=== PATIENT | female | born 1945 | race Caucasian/White ===

== ENCOUNTER 2017-08-30 09:15 | Emergency (ER) | payer MEDICARE, OTHER ==
[~2017-08-30] VITALS: Ht 157.5 cm; Wt 122.5 kg
[~2017-08-30 09:15] MED LIST: CALCIUM500 M1 PO; CYCLOBENZAPRINE10 MG PO; CYMBALTA30 MG PO; DETROL1 MG PO; ESOMEPRAZOLE MA40 MG PO; LEVOTHYROXINE50 MCG PO; LEVOXYL50 MCG PO; LISINOPRIL30 MG; LOSARTAN-HCTZ1 EAC2 PO; LOSARTAN-HCTZ1 EACH PO; MAGNESIUM100 MG PO; NEURONTIN300 MG PO; NEXIUM20 MG PO; NEXIUM40 MG PO; NITROGLYCERIN0.4 MG SL; NITROSTAT0.4 MG SL; NORCO 5-325 TA1 EACH PO; SIMVASTATIN20 MG PO; SIMVASTATIN5 MG; SLOW RELEASE I142 MG PO; ZOCOR20 MG PO; ZOFRAN ODT4 MG SL
[2017-08-30] MEDS ORDERED: CELECOXIB200 MG PO (11:23)
--- OUTSIDE RECORDS SUMMARY | 2017-08-30 11:37 | XMS ---
Demographics + + + | Address | [address] | | | [place] [address] | + + + | Preferred Language | Unknown | + + + | Marital Status | Unknown | + + + | Buddhism Affiliation | Unknown | + + + | Race | Unknown | + + + | Ethnic Group | Unknown | + + + Author + + + | Author | [facility] | + + + | Organization | [facility] | + + + | Address | [address] | | | [place] [address] | + + + | Phone | | + + + Care Team Providers + + + + | Care Wire Coater Name | Role | Phone | + + + + Unavailable | Unavailable | + + + + PROBLEMS + + + + + + + + | Type | Condition | ICD9-CM | [id number] | Onset | Condition | SNOMED | | | | Code | Code | Dates | Status | Code | + + + + + + + + | Assessment | Tinnitus | H93.13 | | 11 Dec, | Active | [id number] | | | of both | | | 2017 | | 102 | | | ears | | | | | | + + + + + + + + | Assessment | Low serum | E27.40 | | 11 Dec, | Active | | | | cortisol | | | 2017 | | | | | level | | | | | | + + + + + + + + | Problem | Osteopenia | 733.90 | | | Active | 74205969 | + + + + + + + + | Problem | Leg pain, | 729.5 | | | Active | 01158867 | | | bilateral | | | | | | + + + + + + + + | Problem | Depression | 300.4 | | | Active | 612357502 | | | with | | | | | | | | anxiety | | | | | | + + + + + + + + | Problem | Morbid | | E66.01 | | Active | 737687302 | | | obesity | | | | | | + + + + + + + + | 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 | | | Active | 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 | | | | | | | | carcinoma | | | | | | | | of breast | | | | | | + + + + + + + + | 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 | | | Active | 658641649 | | | stress and | | | | | | | | urge | | | | | | | | urinary | | | | | | | | incontinen | | | | | | | | ce | | | | | | + + + + + + + + | Problem | Skin | 686.9 | | | Active | 723866562 | | | lesion, | | | | | | | | infected | | | | | | + + + + + + + + | Problem | Spondylosi | M47.16 | | | Active | 02189394 | | | s, lumbar, | | | | | | | | with | | | | | | | | myelopathy | | | | | | + + + + + + + + | Problem | Situationa | F43.21 | | | Active | 64926734 | | | l | | | | | | | | depression | | | | | | + + + + + + + + | Problem | Lumbosacra | M47.27 | | | Active | 93460761 | | | l | | | | | | | | radiculopa | | | | | | | | thy due to | | | | | | | | | | | | | | | | degenerati | | | | | | | | ve joint | | | | | | | | disease of | | | | | | | | spine | | | | | | + + + + + + + + | Problem | Adrenal | E27.40 | | | Active | 238752942 | | | insufficie | | | | | | | | ncy | | | | | | + + + + + + + + | Problem | Recurrent | J69.0 | | | Active | 510398629 | | | aspiration | | | | | | | | | | | | | | | | bronchitis | | | | | | | | /pneumonia | | | | | | + + + + + + + + | Problem | Vitamin D | 268.9 | | | Active | 87141248 | | | deficiency | | | | | | + + + + + + + + | Problem | Chemothera | V67.2 | | | Active | 064884887 | | | py | | | | | | | | follow-up | | | | | | | | examinatio | | | | | | | | n | | | | | | + + + + + + + + | Problem | Chemothera | 787.91 | | | Active | 30336008 | | | py induced | | | | | | | | diarrhea | | | | | | + + + + + + + + | 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 | | | Active | 22537925 | | | erative | | | | | | | | anemia | | | | | | + + + + + + + + | Problem | Occult | R19.5 | | | Active | 26363516 | | | blood | | | | | | | | positive | | | | | | | | stool | | | | | | + + + + + + + + | Problem | ASCVD | I25.10 | | | Active | 66983954 | | | (arteriosc | | | | | | | | lerotic | | | | | | | | cardiovasc | | | | | | | | ular | | | | | | | | disease) | | | | | | + + + + + + + + | Problem | Preop | Z01.818 | | | Active | 059288949 | | | general | | | | | | | | physical | | | | | | | | exam | | | | | | + + + + + + + + | Problem | GERD | | K21.9 | | Active | 884231725 | | | (gastroeso | | | | | | | | phageal | | | | | | | | reflux | | | | | | | | disease) | | | | | | + + + + + + + + | Problem | Iron | | D50.9 | | Active | 59244490 | | | deficiency | | | | | | | | anemia | | | | | | + + + + + + + + | Problem | Family | V16.0 | | | Active | 195365955 | | | history of | | | | | | | | colon | | | | | | | | cancer | | | | | | + + + + + + + + | Problem | Hypothyroi | | E03.9 | | Active | 67532561 | | | d | | | | | | + + + + + + + + | Problem | Hyperlipid | | E78.5 | | Active | 53589077 | | | emia | | | | | | + + + + + + + + | Problem | Stress | N39.3 | | | Active | 21886488 | | | incontinen | | | | | | | | ce | | | | | | + + + + + + + + | Problem | Calculus | | N20.0 | | Active | 81966791 | | | of kidney | | | | | | + + + + + + + + | Problem | Hypertensi | | I10 | | Active | 34344309 | | | on | | | | | | + + + + + + + + ALLERGIES + + + + +--------+ | Substance | Reaction | Event Type | Date | Status | + + + + +--------+ | Penicillin | anaphylaxis | Drug Allergy | Dec, | Active | + + + + +--------+ | Codeine | hallucinations | Drug Allergy | Dec, | Active | + + + + +--------+ | Flagyl | hives | Drug Allergy | Dec, | Active | + + + + +--------+ | Cipro | SOB | Drug Allergy | Dec, | Active | + + + + +--------+ | sulfa | hives | Non Drug | Dec, | Active | | | | Allergy | | | + + + + +--------+ SOCIAL HISTORY No smoking Hx information available PLAN OF CARE VITAL SIGNS + + + + | Height | 60 in | 2016-12-21 | + + + + | Weight | 271.0 lbs | 2016-12-21 | + + + + | BMI | 52.92 kg/m2 | 2016-12-21 | + + + + | Temperature | 97.0 degrees Fahrenheit | 2016-12-21 | + + + + | Heart Rate | 90 /min | 2016-12-21 | + + + + | Blood pressure systolic | 130 mm Hg | 2016-12-21 | + + + + | Blood pressure diastolic | 99 mm Hg | 2016-12-21 | + + + + MEDICATIONS + + + + + + + +--------+ | Medicati | Instruct | Dosage | Frequenc | Start | End Date | Duration | Status | | on | ions | | y | Date | | | | + + + + + + + +--------+ | Macrobid | Orally | 1 | 12h | 10 Apr, | 15 Apr, | 5 days | Active | | 100 mg | every 12 | capsule | | 2016 | 2016 | | | | | hrs | with | | | | | | | | | food | | | | | | + + + + + + + +--------+ | Losartan | Orally | TAKE ONE | | | | 30 | Active | | | one time | TABLET | | | | | | | Potassiu | daily | BY MOUTH | | | | | | | m-HCTZ | in am | EVERY | | | | | | | 50-12.5 | | DAY | | | | | | | MG | | | | | | | | + + + + + + + +--------+ | Magnesiu | Orally | 1 tablet | 8h | | | | Active | | m 500 MG | Three | with | | | | | | | | times a | food | | | | | | | | day | | | | | | | + + + + + + + +--------+ | Simvasta | Orally | 1 tablet | 24h | | | 90 days | Active | | tin 20 | Once a | every | | | | | | | MG | day | evening | | | | | | + + + + + + + +--------+ | Cymbalta | Orally | 1 | 12h | | | 90 | Active | | 30 mg | Twice a | capsule | | | | | | | | day | | | | | | | + + + + + + + +--------+ | Gabapent | Orally | 1 cap AM | 8h | 22 Sep, | | | Active | | in 300 | tid | and PM. | | 2015 | | | | | MG | | 2 caps | | | | | | | | | at | | | | | | | | | night | | | | | | + + + + + + + +--------+ | Slow Fe | Orally | 1 tablet | 8h | | | | Active | | 142 (45 | Three | | | | | | | | Fe) MG | times a | | | | | | | | | day | | | | | | | + + + + + + + +--------+ | Nitrogly | Sublingu | 1 tablet | | 16 Mar, | | | Active | | cerin | al 1 tab | under | | 2013 | | | | | 0.4 MG | at | the | | | | | | | | onset of | tongue | | | | | | | | chest | | | | | | | | | pain. | | | | | | | | | May | | | | | | | | | repeat | | | | | | | | | every | | | | | | | | | 5min x2 | | | | | | | | | as | | | | | | | | | needed | | | | | | | | | for | | | | | | | | | continue | | | | | | | | | d chest | | | | | | | | | pain | | | | | | | + + + + + + + +--------+ | Levothyr | Orally | 1 tablet | 24h | | | | Active | | oxine | Once a | every | | | | | | | Sodium | day | morning | | | | | | | 50 MCG | | on an | | | | | | | | | empty | | | | | | | | | stomach | | | | | | + + + + + + + +--------+ | Tolterod | Orally | 2 tabs | 12h | 15 Seng, | 27 Dixon, | 30 | Active | | ine | Twice a | in am | | 2016 | 2017 | day(s) | | | Tartrate | day | and 1 | | | | | | | 1 MG | | tab at | | | | | | | | | night | | | | | | + + + + + + + +--------+ | Vitamin | Orally | 1 tablet | 8h | | | | Active | | C 500 MG | Three | | | | | | | | | times a | | | | | | | | | day | | | | | | | + + + + + + + +--------+ | Calcium | | | | | | | Active | + + + + + + + +--------+ | Meloxica | Orally | 1 tablet | 24h | | | | Active | | m 15 MG | Once a | | | | | | | | | day | | | | | | | + + + + + + + +--------+ | Esomepra | | TAKE 1 | | | | 30 | Active | | zole | | CAPSULE | | | | | | | Magnesiu | | BY MOUTH | | | | | | | m 40 | | EVERY | | | | | | | | | DAY | | | | | | + + + + + + + +--------+ RESULTS No Results PROCEDURES + + + + + | Procedure | Date Ordered | Related Diagnosis | Body Site | + + + + + | Est Level III | December 21, 2016 | | | | Intermediate | | | | + + + + + | DOC MEDS VERIFIED | December 21, 2016 | | | | W/PT OR RE | | | | + + + + + IMMUNIZATIONS No Known Immunizations"
--- OUTSIDE RECORDS SUMMARY | 2017-08-30 11:37 | XMS ---
Demographics + + + | Address | [address] | | | [place] [address] | + + + | Preferred Language | Unknown | + + + | Marital Status | Unknown | + + + | Christian Affiliation | Unknown | + + + | Race | Unknown | + + + | Ethnic Group | Unknown | + + + Author + + + | Author | [facility] | + + + | Organization | [facility] | + + + | Address | 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 | | | Active | 328683792 | | | ductal | | | | | | | | carcinoma | | | | | | | | of breast | | | | | | +---------+ + + +--------+ + + | Problem | Spondylosi | M47.16 | | | Active | 47971195 | | | s, lumbar, | | | | | | | | with | | | | | | | | myelopathy | | | | | | +---------+ + + +--------+ + + | Problem | Skin | 686.9 | | | Active | 408926583 | | | lesion, | | | | | | | | infected | | | | | | +---------+ + + +--------+ + + | Problem | Lumbosacra | M47.27 | | | Active | 10575730 | | | l | | | [...] spine | | | | | | +---------+ + + +--------+ + + | Problem | Chemothera | 787.91 | | | Active | 18104730 | | | py induced | | | | | | | | diarrhea | | | | | | +---------+ + + +--------+ + + | Problem | Situationa | F43.21 | | | Active | 19773368 | | | l | | | | | | | | depression | | | | | | +---------+ + + +--------+ + + | 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 | | | Active | 86704688 | | | erative | | | | | | | | anemia | | | | | | +---------+ + + +--------+ + + | Problem | Occult | R19.5 | | | Active | 67606593 | | | blood | | | | | | | | positive | | | | | | | | stool | | | | | | +---------+ + + +--------+ + + | Problem | Vitamin D | | E55.9 | | Active | 32513054 | | | deficiency | | | | | | +---------+ + + +--------+ + + | Problem | Osteopenia | | M85.80 | | Active | 81873168 | +---------+ + + +--------+ + + | Problem | Hypothyroi | | E03.9 | | Active | 22585114 | | | d | | | | | | +---------+ + + +--------+ + + | Problem | Family | V16.0 | | | Active | 460292036 | | | history of | | | | | | | | colon | | | | | | | | cancer | | | | | | +---------+ + + +--------+ + + | Problem | Chemothera | V67.2 | | | Active | 560869558 | | | py | | | | | | | | follow-up | | | | | | | | examinatio | | | | | | | | n | | | | | | +---------+ + + +--------+ + + | Problem | ASCVD | I25.10 | | | Active | 54872250 | | | (arteriosc | | | | | | | | lerotic | | | | | | | | cardiovasc | | | | | | | | ular | | | | | | | | disease) | | | | | | +---------+ + + +--------+ + + | Problem | Preop | Z01.818 | | | Active | 863358763 | | | general | | | | | | | | physical | | | | | | | | exam | | | | | | +---------+ + + +--------+ + + | Problem | Adrenal | E27.40 | | | Active | 437874425 | | | insufficie | | | | | | | | ncy | | | | | | +---------+ + + +--------+ + + | Problem | Recurrent | J69.0 | | | Active | 714305157 | | | aspiration | | | | | | | | | | | | | | | | bronchitis | | | | | | | | /pneumonia | | | | | | +---------+ + + +--------+ + + | Problem | Calculus | | N20.0 | | Active | 86881625 | | | of kidney | | | | | | +---------+ + + +--------+ + + | Problem | Hypertensi | | I10 | | Active | 50707818 | | | on | | | | | | +---------+ + + +--------+ + + | Problem | GERD | | K21.9 | | Active | 956618059 | | | (gastroeso | | | | | | | | phageal | | | | | | | | reflux | | | | | | | | disease) | | | | | | +---------+ + + +--------+ + + | Problem | Iron | | D50.9 | | Active | 85965194 | | | deficiency | | | | | | | | anemia | | | | | | +---------+ + + +--------+ + + | Problem | Morbid | | E66.01 | | Active | 984406054 | | | obesity | | | | | | +---------+ + + +--------+ + + | 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 | | | Active | 005003912 | | | stress and | | | | | | | | urge | | | | | | | | urinary | | | | | | | | incontinen | | | | | | | | ce | | | | | | +---------+ + + +--------+ + + | Problem | Hyperlipid | | E78.5 | | Active | 28653186 | | | emia | | | | | | +---------+ + + +--------+ + + | Problem | Stress | N39.3 | | | Active | 98653491 | | | incontinen | | | | | | | | ce | | | | | | +---------+ + + +--------+ + + ALLERGIES Unknown Allergies SOCIAL HISTORY No smoking Hx information available PLAN OF CARE VITAL SIGNS MEDICATIONS Unknown Medications RESULTS No Results PROCEDURES No Known procedures IMMUNIZATIONS No Known Immunizations"
--- OUTSIDE RECORDS SUMMARY | 2017-08-30 11:37 | XMS ---
Demographics + + + | Address | [address] | | | [place] [address] | + + + | Preferred Language | Unknown | + + + | Marital Status | Unknown | + + + | Jehovah'S Witness Affiliation | Unknown | + + + | Race | Unknown | + + + | Ethnic Group | Unknown | + + + Author + + + | Author | [facility] | + + + | Organization | [facility] | + + + | Address | [address] | | | [place] [address] | + + + | Phone | | + + + Care Team Providers + + + + | Care Special Education Coordinator Name | Role | Phone | + + + + Unavailable | Unavailable | + + + + PROBLEMS +---------+ + + +--------+ + + | Type | Condition | ICD9-CM | MTI75-CR | Onset | Condition | SNOMED | | | | Code | Code | Dates | Status | Code | +---------+ + + +--------+ + + | Problem | Osteopenia | 733.90 | | | Active | 79652015 | +---------+ + + +--------+ + + | Problem | Leg pain, | 729.5 | | | Active | 95378897 | | | bilateral | | | | | | +---------+ + + +--------+ + + | Problem | Depression | 300.4 | | | Active | 764145540 | | | with | | | | | | | | anxiety | | | | | | +---------+ + + +--------+ + + | Problem | Morbid | | E66.01 | | Active | 610128544 | | | obesity | | | | | | +---------+ + + +--------+ + + | 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 | | | Active | 252444270 | | | ductal | | | | | | | | carcinoma | | | | | | | | of breast | | | | | | +---------+ + + +--------+ + + | 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 | | | Active | 775225091 | | | stress and | | [...] | 686.9 | | | Active | 706118006 | | | lesion, | | | | | | | | infected | | | | | | +---------+ + + +--------+ + + | Problem | Spondylosi | M47.16 | | | Active | 36337519 | | | s, lumbar, | | | | | | | | with | | | | | | | | myelopathy | | | | | | +---------+ + + +--------+ + + | Problem | Situationa | F43.21 | | | Active | 05110842 | | | l | | | | | | | | depression | | | | | | +---------+ + + +--------+ + + | Problem | Lumbosacra | M47.27 | | | Active | 93189525 | | | l | | | [...] | E27.40 | | | Active | 784182873 | | | insufficie | | | | | | | | ncy | | | | | | +---------+ + + +--------+ + + | Problem | Recurrent | J69.0 | | | Active | 775451863 | | | aspiration | | | | | | | | | | | | | | | | bronchitis | | | | | | | | /pneumonia | | | | | | +---------+ + + +--------+ + + | Problem | Vitamin D | 268.9 | | | Active | 73013841 | | | deficiency | | | | | | +---------+ + + +--------+ + + | Problem | Chemothera | V67.2 | | | Active | 854158974 | | | py | | | | | | | | follow-up | | | | | | | | examinatio | | | | | | | | n | | | | | | +---------+ + + +--------+ + + | Problem | Chemothera | 787.91 | | | Active | 75193016 | | | py induced | | | | | | | | diarrhea | | | | | | +---------+ + + +--------+ + + | 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 | | | Active | 73683297 | | | erative | | | | | | | | anemia | | | | | | +---------+ + + +--------+ + + | Problem | Occult | R19.5 | | | Active | 56387335 | | | blood | | | | | | | | positive | | | | | | | | stool | | | | | | +---------+ + + +--------+ + + | Problem | ASCVD | I25.10 | | | Active | 75210210 | | | (arteriosc | | | | | | | | lerotic | | | | | | | | cardiovasc | | | | | | | | ular | | | | | | | | disease) | | | | | | +---------+ + + +--------+ + + | Problem | Preop | Z01.818 | | | Active | 715183005 | | | general | | | | | | | | physical | | | | | | | | exam | | | | | | +---------+ + + +--------+ + + | Problem | GERD | | K21.9 | | Active | 955620676 | | | (gastroeso | | | | | | | | phageal | | | | | | | | reflux | | | | | | | | disease) | | | | | | +---------+ + + +--------+ + + | Problem | Iron | | D50.9 | | Active | 59164253 | | | deficiency | | | | | | | | anemia | | | | | | +---------+ + + +--------+ + + | Problem | Family | V16.0 | | | Active | 320799913 | | | history of | | | | | | | | colon | | | | | | | | cancer | | | | | | +---------+ + + +--------+ + + | Problem | Hypothyroi | | E03.9 | | Active | 94262012 | | | d | | | | | | +---------+ + + +--------+ + + | Problem | Hyperlipid | | E78.5 | | Active | 66816066 | | | emia | | | | | | +---------+ + + +--------+ + + | Problem | Stress | N39.3 | | | Active | 03858515 | | | incontinen | | | | | | | | ce | | | | | | +---------+ + + +--------+ + + | Problem | Calculus | | N20.0 | | Active | 88151024 | | | of kidney | | | | | | +---------+ + + +--------+ + + | Problem | Hypertensi | | I10 | | Active | 88755132 | | | on | | | | | | +---------+ + + +--------+ + + ALLERGIES Unknown Allergies SOCIAL HISTORY No smoking Hx information available PLAN OF CARE VITAL SIGNS MEDICATIONS Unknown Medications RESULTS No Results PROCEDURES No Known procedures IMMUNIZATIONS No Known Immunizations"
--- OUTSIDE RECORDS SUMMARY | 2017-08-30 11:37 | XMS ---
Demographics + + + | Address | [address] | | | [place] [address] | + + + | Preferred Language | Unknown | + + + | Marital Status | Unknown | + + + | Mandaen Affiliation | Unknown | + + + | Race | Unknown | + + + | Ethnic Group | Unknown | + + + Author + + + | Author | [facility] | + + + | Organization | [facility] | + + + | Address | [address] | | | [place] [address] | + + + | Phone | | + + + Care Team Providers + + + + | Care Rack Worker Name | Role | Phone | + + + + Unavailable | Unavailable | + + + + PROBLEMS +---------+ + + +--------+ + + | Type | Condition | ICD9-CM | [id number] | Onset | Condition | SNOMED | | | | Code | Code | Dates | Status | Code | +---------+ + + +--------+ + + | Problem | Osteopenia | 733.90 | | | Active | 91640421 | +---------+ + + +--------+ + + | Problem | Leg pain, | 729.5 | | | Active | 29756686 | | | bilateral | | | | | | +---------+ + + +--------+ + + | Problem | Depression | 300.4 | | | Active | 970877098 | | | with | | | | | | | | anxiety | | | | | | +---------+ + + +--------+ + + | Problem | Morbid | | E66.01 | | Active | 958451904 | | | obesity | | | | | | +---------+ + + +--------+ + + | 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 | | | Active | 695145753 | | | ductal | | | | | | | | carcinoma | | | | | | | | of breast | | | | | | +---------+ + + +--------+ + + | 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 | | | Active | 125522829 | | | stress and | | [...] | 686.9 | | | Active | 070447264 | | | lesion, | | | | | | | | infected | | | | | | +---------+ + + +--------+ + + | Problem | Spondylosi | M47.16 | | | Active | 35752278 | | | s, lumbar, | | | | | | | | with | | | | | | | | myelopathy | | | | | | +---------+ + + +--------+ + + | Problem | Situationa | F43.21 | | | Active | 10481133 | | | l | | | | | | | | depression | | | | | | +---------+ + + +--------+ + + | Problem | Lumbosacra | M47.27 | | | Active | 15821772 | | | l | | | [...] | E27.40 | | | Active | 116290672 | | | insufficie | | | | | | | | ncy | | | | | | +---------+ + + +--------+ + + | Problem | Recurrent | J69.0 | | | Active | 745029362 | | | aspiration | | | | | | | | | | | | | | | | bronchitis | | | | | | | | /pneumonia | | | | | | +---------+ + + +--------+ + + | Problem | Vitamin D | 268.9 | | | Active | 55678575 | | | deficiency | | | | | | +---------+ + + +--------+ + + | Problem | Chemothera | V67.2 | | | Active | 356639906 | | | py | | | | | | | | follow-up | | | | | | | | examinatio | | | | | | | | n | | | | | | +---------+ + + +--------+ + + | Problem | Chemothera | 787.91 | | | Active | 03636839 | | | py induced | | | | | | | | diarrhea | | | | | | +---------+ + + +--------+ + + | 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 | | | Active | 82588998 | | | erative | | | | | | | | anemia | | | | | | +---------+ + + +--------+ + + | Problem | Occult | R19.5 | | | Active | 49735390 | | | blood | | | | | | | | positive | | | | | | | | stool | | | | | | +---------+ + + +--------+ + + | Problem | ASCVD | I25.10 | | | Active | 23847133 | | | (arteriosc | | | | | | | | lerotic | | | | | | | | cardiovasc | | | | | | | | ular | | | | | | | | disease) | | | | | | +---------+ + + +--------+ + + | Problem | Preop | Z01.818 | | | Active | 880242911 | | | general | | | | | | | | physical | | | | | | | | exam | | | | | | +---------+ + + +--------+ + + | Problem | GERD | | K21.9 | | Active | 200879302 | | | (gastroeso | | | | | | | | phageal | | | | | | | | reflux | | | | | | | | disease) | | | | | | +---------+ + + +--------+ + + | Problem | Iron | | D50.9 | | Active | 35010135 | | | deficiency | | | | | | | | anemia | | | | | | +---------+ + + +--------+ + + | Problem | Family | V16.0 | | | Active | 794162409 | | | history of | | | | | | | | colon | | | | | | | | cancer | | | | | | +---------+ + + +--------+ + + | Problem | Hypothyroi | | E03.9 | | Active | [id number] | | | d | | | | | | +---------+ + + +--------+ + + | Problem | Hyperlipid | | E78.5 | | Active | [id number] | | | emia | | | | | | +---------+ + + +--------+ + + | Problem | Stress | N39.3 | | | Active | [id number] | | | incontinen | | | | | | | | ce | | | | | | +---------+ + + +--------+ + + | Problem | Calculus | | N20.0 | | Active | [id number] | | | of kidney | | | | | | +---------+ + + +--------+ + + | Problem | Hypertensi | | I10 | | Active | [id number] | | | on | | | | | | +---------+ + + +--------+ + + ALLERGIES Unknown Allergies SOCIAL HISTORY No smoking Hx information available PLAN OF CARE VITAL SIGNS MEDICATIONS Unknown Medications RESULTS No Results PROCEDURES No Known procedures IMMUNIZATIONS No Known Immunizations"
--- OUTSIDE RECORDS SUMMARY | 2017-08-30 11:37 | XMS ---
Demographics + + + | Address | [address] | | | [place] [address] | + + + | Preferred Language | Unknown | + + + | Marital Status | Unknown | + + + | Quaker Affiliation | Unknown | + + + | Race | Unknown | + + + | Ethnic Group | Unknown | + + + Author + + + | Author | [facility] | + + + | Organization | [facility] | + + + | Address | [address] | | | [place] [address] | + + + | Phone | | + + + Care Team Providers + + + + | Care Filler Room Attendant Name | Role | Phone | + + + + Unavailable | Unavailable | + + + + PROBLEMS +---------+ + + +--------+ + + | Type | Condition | ICD9-CM | UIQ56-RL | Onset | Condition | SNOMED | | | | Code | Code | Dates | Status | Code | +---------+ + + +--------+ + + | Problem | Osteopenia | 733.90 | | | Active | [id number] | +---------+ + + +--------+ + + | Problem | Leg pain, | 729.5 | | | Active | 99457360 | | | bilateral | | | | | | +---------+ + + +--------+ + + | Problem | Depression | 300.4 | | | Active | 042696445 | | | with | | | | | | | | anxiety | | | | | | +---------+ + + +--------+ + + | Problem | Morbid | | E66.01 | | Active | 166491488 | | | obesity | | | | | | +---------+ + + +--------+ + + | 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 | | | Active | 906194609 | | | ductal | | | | | | | | carcinoma | | | | | | | | of breast | | | | | | +---------+ + + +--------+ + + | 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 | | | Active | 100551982 | | | stress and | | [...] | 686.9 | | | Active | 179232730 | | | lesion, | | | | | | | | infected | | | | | | +---------+ + + +--------+ + + | Problem | Spondylosi | M47.16 | | | Active | 24436938 | | | s, lumbar, | | | | | | | | with | | | | | | | | myelopathy | | | | | | +---------+ + + +--------+ + + | Problem | Situationa | F43.21 | | | Active | 09993604 | | | l | | | | | | | | depression | | | | | | +---------+ + + +--------+ + + | Problem | Lumbosacra | M47.27 | | | Active | 34048054 | | | l | | | [...] | E27.40 | | | Active | 989606559 | | | insufficie | | | | | | | | ncy | | | | | | +---------+ + + +--------+ + + | Problem | Recurrent | J69.0 | | | Active | 966558188 | | | aspiration | | | | | | | | | | | | | | | | bronchitis | | | | | | | | /pneumonia | | | | | | +---------+ + + +--------+ + + | Problem | Vitamin D | 268.9 | | | Active | 67654331 | | | deficiency | | | | | | +---------+ + + +--------+ + + | Problem | Chemothera | V67.2 | | | Active | 483984435 | | | py | | | | | | | | follow-up | | | | | | | | examinatio | | | | | | | | n | | | | | | +---------+ + + +--------+ + + | Problem | Chemothera | 787.91 | | | Active | 25072527 | | | py induced | | | | | | | | diarrhea | | | | | | +---------+ + + +--------+ + + | 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 | | | Active | 51057196 | | | erative | | | | | | | | anemia | | | | | | +---------+ + + +--------+ + + | Problem | Occult | R19.5 | | | Active | 65461371 | | | blood | | | | | | | | positive | | | | | | | | stool | | | | | | +---------+ + + +--------+ + + | Problem | ASCVD | I25.10 | | | Active | 56261903 | | | (arteriosc | | | | | | | | lerotic | | | | | | | | cardiovasc | | | | | | | | ular | | | | | | | | disease) | | | | | | +---------+ + + +--------+ + + | Problem | Preop | Z01.818 | | | Active | 807129404 | | | general | | | | | | | | physical | | | | | | | | exam | | | | | | +---------+ + + +--------+ + + | Problem | GERD | | K21.9 | | Active | 677320187 | | | (gastroeso | | | | | | | | phageal | | | | | | | | reflux | | | | | | | | disease) | | | | | | +---------+ + + +--------+ + + | Problem | Iron | | D50.9 | | Active | 46620012 | | | deficiency | | | | | | | | anemia | | | | | | +---------+ + + +--------+ + + | Problem | Family | V16.0 | | | Active | 266716527 | | | history of | | | | | | | | colon | | | | | | | | cancer | | | | | | +---------+ + + +--------+ + + | Problem | Hypothyroi | | E03.9 | | Active | 37297346 | | | d | | | | | | +---------+ + + +--------+ + + | Problem | Hyperlipid | | E78.5 | | Active | 90895668 | | | emia | | | | | | +---------+ + + +--------+ + + | Problem | Stress | N39.3 | | | Active | 33482481 | | | incontinen | | | | | | | | ce | | | | | | +---------+ + + +--------+ + + | Problem | Calculus | | N20.0 | | Active | 87266698 | | | of kidney | | | | | | +---------+ + + +--------+ + + | Problem | Hypertensi | | I10 | | Active | 92943051 | | | on | | | | | | +---------+ + + +--------+ + + ALLERGIES Unknown Allergies SOCIAL HISTORY No smoking Hx information available PLAN OF CARE VITAL SIGNS MEDICATIONS Unknown Medications RESULTS No Results PROCEDURES No Known procedures IMMUNIZATIONS No Known Immunizations"
--- OUTSIDE RECORDS SUMMARY | 2017-08-30 11:37 | XMS ---
Demographics + + + | Address | [address] | | | [place] [address] | + + + | Preferred Language | Unknown | + + + | Marital Status | Unknown | + + + | Mandaeism Affiliation | Unknown | + + + | Race | Unknown | + + + | Ethnic Group | Unknown | + + + Author + + + | Author | [facility] | + + + | Organization | [facility] | + + + | Address | 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 | | | Active | 512332797 | | | ductal | | | | | | | | carcinoma | | | | | | | | of breast | | | | | | +---------+ + + +--------+ + + | Problem | Spondylosi | M47.16 | | | Active | 29182809 | | | s, lumbar, | | | | | | | | with | | | | | | | | myelopathy | | | | | | +---------+ + + +--------+ + + | Problem | Skin | 686.9 | | | Active | 825561071 | | | lesion, | | | | | | | | infected | | | | | | +---------+ + + +--------+ + + | Problem | Lumbosacra | M47.27 | | | Active | 77160269 | | | l | | | [...] | 787.91 | | | Active | 65200891 | | | py induced | | | | | | | | diarrhea | | | | | | +---------+ + + +--------+ + + | Problem | Situationa | F43.21 | | | Active | 72910321 | | | l | | | | | | | | depression | | | | | | +---------+ + + +--------+ + + | 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 | | | Active | 13563865 | | | erative | | | | | | | | anemia | | | | | | +---------+ + + +--------+ + + | Problem | Occult | R19.5 | | | Active | 57261481 | | | blood | | | | | | | | positive | | | | | | | | stool | | | | | | +---------+ + + +--------+ + + | Problem | Vitamin D | | E55.9 | | Active | 46176516 | | | deficiency | | | | | | +---------+ + + +--------+ + + | Problem | Osteopenia | | M85.80 | | Active | 96574347 | +---------+ + + +--------+ + + | Problem | Hypothyroi | | E03.9 | | Active | 09961817 | | | d | | | | | | +---------+ + + +--------+ + + | Problem | Family | V16.0 | | | Active | 405968407 | | | history of | | | | | | | | colon | | | | | | | | cancer | | | | | | +---------+ + + +--------+ + + | Problem | Chemothera | V67.2 | | | Active | 771080544 | | | py | | | | | | | | follow-up | | | | | | | | examinatio | | | | | | | | n | | | | | | +---------+ + + +--------+ + + | Problem | ASCVD | I25.10 | | | Active | 67440714 | | | (arteriosc | | | | | | | | lerotic | | | | | | | | cardiovasc | | | | | | | | ular | | | | | | | | disease) | | | | | | +---------+ + + +--------+ + + | Problem | Preop | Z01.818 | | | Active | 440102104 | | | general | | | | | | | | physical | | | | | | | | exam | | | | | | +---------+ + + +--------+ + + | Problem | Adrenal | E27.40 | | | Active | 087848594 | | | insufficie | | | | | | | | ncy | | | | | | +---------+ + + +--------+ + + | Problem | Recurrent | J69.0 | | | Active | 002591940 | | | aspiration | | | | | | | | | | | | | | | | bronchitis | | | | | | | | /pneumonia | | | | | | +---------+ + + +--------+ + + | Problem | Calculus | | N20.0 | | Active | 97813699 | | | of kidney | | | | | | +---------+ + + +--------+ + + | Problem | Hypertensi | | I10 | | Active | 74736468 | | | on | | | | | | +---------+ + + +--------+ + + | Problem | GERD | | K21.9 | | Active | 769011949 | | | (gastroeso | | | | | | | | phageal | | | | | | | | reflux | | | | | | | | disease) | | | | | | +---------+ + + +--------+ + + | Problem | Iron | | D50.9 | | Active | 31370426 | | | deficiency | | | | | | | | anemia | | | | | | +---------+ + + +--------+ + + | Problem | Morbid | | E66.01 | | Active | 215813876 | | | obesity | | | | | | +---------+ + + +--------+ + + | 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 | | | Active | 833763309 | | | stress and | | [...] | | E78.5 | | Active | 52347808 | | | emia | | | | | | +---------+ + + +--------+ + + | Problem | Stress | N39.3 | | | Active | 28001205 | | | incontinen | | | | | | | | ce | | | | | | +---------+ + + +--------+ + + ALLERGIES + + + + +--------+ | Substance | Reaction | Event Type | Date | Status | + + + + +--------+ | Penicillin | anaphylaxis | Drug Allergy | Mar, | Active | + + + + +--------+ | Codeine | hallucinations | Drug Allergy | Mar, | Active | + + + + +--------+ | Flagyl | hives | Drug Allergy | Mar, | Active | + + + + +--------+ | Cipro | SOB | Drug Allergy | Mar, | Active | + + + + +--------+ | sulfa | hives | Non Drug | Mar, | Active | | | | Allergy | | | + + + + +--------+ SOCIAL HISTORY No smoking Hx information available PLAN OF CARE + +---------+ | Activity | Details | + +---------+ +---+ | | +---+ + + + | Follow Up | 3 Months Reason:null | + + + | Pending Test | TSH | + + + | Pending Test | CBC, Platelet; No Differential | + + + | Pending Test | Comp. Metabolic Panel (14) | + + + | Pending Test | Iron and Total Iron Binding | + + + | Pending Test | Vitamin D 25-OH | + + + VITAL SIGNS + + + + | Height | 60 in | 2017-03-23 | + + + + | Weight | 271.8 lbs | 2017-03-23 | + + + + | BMI | 53.08 kg/m2 | 2017-03-23 | + + + + | Temperature | 98.4 degrees Fahrenheit | 2017-03-23 | + + + + | Heart Rate | 80 /min | 2017-03-23 | + + + + | Blood pressure systolic | 140 mm Hg | 2017-03-23 | + + + + | Blood pressure diastolic | 77 mm Hg | 2017-03-23 | + + + + MEDICATIONS + [...] | tid | and PM. | | 2016 | | | | | MG | | 2 caps | | | | | | | | | at | | | | | | | | | night | | | | | | + + + + + + + +--------+ | Nitrogly | Sublingu | 1 tablet | | | | | Active | | cerin | al 1 tab | under | | | | | | | 0.4 MG | every 5 | the | | | | | | | | | tongue | | | | | | + + + + + + + +--------+ | Tolterod | Orally | 2 tabs | 12h | | | 30 | Active | | ine | Twice a | in AM | | | | | | | Tartrate | day | and 1 | | | | | | | 1 MG | | tab at | | | | | | | | | night | | | | | | + + + + + + + +--------+ | Simvasta | Orally | 1 tablet | 24h | | | 90 | Active | | tin 20 | [...] | + + + + + | Office Visit, Est | March 23, 2017 | | | | Pt., Level 3 | | | | + + + + + | [facility] MED/CURRENT | March 23, 2017 | | | | MED MERGE | | | | + + + + + | DOC MEDS VERIFIED | March 23, 2017 | | | | W/PT OR RE | | | | + + + + + IMMUNIZATIONS No Known Immunizations"
--- OUTSIDE RECORDS SUMMARY | 2017-08-30 11:37 | XMS ---
Demographics + + + | Address | [address] | | | [place] [address] | + + + | Preferred Language | Unknown | + + + | Marital Status | Unknown | + + + | Christianity Affiliation | Unknown | + + + | Race | Unknown | + + + | Ethnic Group | Unknown | + + + Author + + + | Author | [facility] | + + + | Organization | [facility] | + + + | Address | 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 | | | Active | 446537345 | | | ductal | | | | | | | | carcinoma | | | | | | | | of breast | | | | | | +---------+ + + +--------+ + + | Problem | Spondylosi | M47.16 | | | Active | 25383733 | | | s, lumbar, | | | | | | | | with | | | | | | | | myelopathy | | | | | | +---------+ + + +--------+ + + | Problem | Skin | 686.9 | | | Active | 388052778 | | | lesion, | | | | | | | | infected | | | | | | +---------+ + + +--------+ + + | Problem | Lumbosacra | M47.27 | | | Active | 73430547 | | | l | | | [...] | 787.91 | | | Active | 41735377 | | | py induced | | | | | | | | diarrhea | | | | | | +---------+ + + +--------+ + + | Problem | Situationa | F43.21 | | | Active | 10561978 | | | l | | | | | | | | depression | | | | | | +---------+ + + +--------+ + + | 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 | | | Active | 63448842 | | | erative | | | | | | | | anemia | | | | | | +---------+ + + +--------+ + + | Problem | Occult | R19.5 | | | Active | 08094711 | | | blood | | | | | | | | positive | | | | | | | | stool | | | | | | +---------+ + + +--------+ + + | Problem | Vitamin D | | E55.9 | | Active | 56966784 | | | deficiency | | | | | | +---------+ + + +--------+ + + | Problem | Osteopenia | | M85.80 | | Active | 60912636 | +---------+ + + +--------+ + + | Problem | Hypothyroi | | E03.9 | | Active | 04999802 | | | d | | | | | | +---------+ + + +--------+ + + | Problem | Family | V16.0 | | | Active | 220894360 | | | history of | | | | | | | | colon | | | | | | | | cancer | | | | | | +---------+ + + +--------+ + + | Problem | Chemothera | V67.2 | | | Active | 132789838 | | | py | | | | | | | | follow-up | | | | | | | | examinatio | | | | | | | | n | | | | | | +---------+ + + +--------+ + + | Problem | ASCVD | I25.10 | | | Active | 01040604 | | | (arteriosc | | | | | | | | lerotic | | | | | | | | cardiovasc | | | | | | | | ular | | | | | | | | disease) | | | | | | +---------+ + + +--------+ + + | Problem | Preop | Z01.818 | | | Active | 643624019 | | | general | | | | | | | | physical | | | | | | | | exam | | | | | | +---------+ + + +--------+ + + | Problem | Adrenal | E27.40 | | | Active | 994253646 | | | insufficie | | | | | | | | ncy | | | | | | +---------+ + + +--------+ + + | Problem | Recurrent | J69.0 | | | Active | 833282453 | | | aspiration | | | | | | | | | | | | | | | | bronchitis | | | | | | | | /pneumonia | | | | | | +---------+ + + +--------+ + + | Problem | Calculus | | N20.0 | | Active | 36913344 | | | of kidney | | | | | | +---------+ + + +--------+ + + | Problem | Hypertensi | | I10 | | Active | 01964342 | | | on | | | | | | +---------+ + + +--------+ + + | Problem | GERD | | K21.9 | | Active | 497371380 | | | (gastroeso | | | | | | | | phageal | | | | | | | | reflux | | | | | | | | disease) | | | | | | +---------+ + + +--------+ + + | Problem | Iron | | D50.9 | | Active | 16639921 | | | deficiency | | | | | | | | anemia | | | | | | +---------+ + + +--------+ + + | Problem | Morbid | | E66.01 | | Active | 483259339 | | | obesity | | | | | | +---------+ + + +--------+ + + | 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 | | | Active | 217819815 | | | stress and | | [...] | | E78.5 | | Active | 68070836 | | | emia | | | | | | +---------+ + + +--------+ + + | Problem | Stress | N39.3 | | | Active | 29406326 | | | incontinen | | | | | | | | ce | | | | | | +---------+ + + +--------+ + + ALLERGIES Unknown Allergies SOCIAL HISTORY No smoking Hx information available PLAN OF CARE VITAL SIGNS MEDICATIONS Unknown Medications RESULTS No Results PROCEDURES No Known procedures IMMUNIZATIONS No Known Immunizations"
--- OUTSIDE RECORDS SUMMARY | 2017-08-30 11:37 | XMS ---
Demographics + + + | Address | [address] | | | [place] [address] | + + + | Preferred Language | Unknown | + + + | Marital Status | Unknown | + + + | Anglican Affiliation | Unknown | + + + | Race | Unknown | + + + | Ethnic Group | Unknown | + + + Author + + + | Author | [facility] | + + + | Organization | [facility] | + + + | Address | [address] | | | [place] [address] | + + + | Phone | | + + + Care Team Providers + + + + | Care Post Secondary Professional Name | Role | Phone | + + + + Unavailable | Unavailable | + + + + PROBLEMS + + + + + + + + | Type | Condition | ICD9-CM | [id number] | Onset | Condition | SNOMED | | | | Code | Code | Dates | Status | Code | + + + + + + + + | Assessment | Low serum | E27.40 | | 26 January, | Active | 760098433 | | | cortisol | | | 2017 | | | | | level | | | | | | + + + + + + + + | Problem | Osteopenia | 733.90 | | | Active | 93270874 | + + + + + + + + | Problem | Leg pain, | 729.5 | | | Active | 43785470 | | | bilateral | | | | | | + + + + + + + + | Problem | Depression | 300.4 | | | Active | 017294742 | | | with | | | | | | | | anxiety | | | | | | + + + + + + + + | Problem | Morbid | | E66.01 | | Active | 322979441 | | | obesity | | | | | | + + + + + + + + | 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 | | | Active | 183724022 | | | ductal | | | | | | | | carcinoma | | | | | | | | of breast | | | | | | + + + + + + + + | 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 | | | Active | 256815406 | | | stress and | | [...] | 686.9 | | | Active | 529563723 | | | lesion, | | | | | | | | infected | | | | | | + + + + + + + + | Problem | Spondylosi | M47.16 | | | Active | 16545345 | | | s, lumbar, | | | | | | | | with | | | | | | | | myelopathy | | | | | | + + + + + + + + | Problem | Situationa | F43.21 | | | Active | 07217885 | | | l | | | | | | | | depression | | | | | | + + + + + + + + | Problem | Lumbosacra | M47.27 | | | Active | 16859877 | | | l | | | [...] | E27.40 | | | Active | 428042586 | | | insufficie | | | | | | | | ncy | | | | | | + + + + + + + + | Problem | Recurrent | J69.0 | | | Active | 147994170 | | | aspiration | | | | | | | | | | | | | | | | bronchitis | | | | | | | | /pneumonia | | | | | | + + + + + + + + | Problem | Vitamin D | 268.9 | | | Active | 13449540 | | | deficiency | | | | | | + + + + + + + + | Problem | Chemothera | V67.2 | | | Active | 362910195 | | | py | | | | | | | | follow-up | | | | | | | | examinatio | | | | | | | | n | | | | | | + + + + + + + + | Problem | Chemothera | 787.91 | | | Active | 96989146 | | | py induced | | | | | | | | diarrhea | | | | | | + + + + + + + + | 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 | | | Active | 30722909 | | | erative | | | | | | | | anemia | | | | | | + + + + + + + + | Problem | Occult | R19.5 | | | Active | 54233262 | | | blood | | | | | | | | positive | | | | | | | | stool | | | | | | + + + + + + + + | Problem | ASCVD | I25.10 | | | Active | 42673503 | | | (arteriosc | | | [...] | Z01.818 | | | Active | 916345048 | | | general | | | | | | | | physical | | | | | | | | exam | | | | | | + + + + + + + + | Problem | GERD | | K21.9 | | Active | 709620704 | | | (gastroeso | | | | | | | | phageal | | | | | | | | reflux | | | | | | | | disease) | | | | | | + + + + + + + + | Problem | Iron | | D50.9 | | Active | 68199282 | | | deficiency | | | | | | | | anemia | | | | | | + + + + + + + + | Problem | Family | V16.0 | | | Active | 810219834 | | | history of | | | | | | | | colon | | | | | | | | cancer | | | | | | + + + + + + + + | Problem | Hypothyroi | | E03.9 | | Active | 62017882 | | | d | | | | | | + + + + + + + + | Problem | Hyperlipid | | E78.5 | | Active | 96590586 | | | emia | | | | | | + + + + + + + + | Problem | Stress | N39.3 | | | Active | 63687687 | | | incontinen | | | | | | | | ce | | | | | | + + + + + + + + | Problem | Calculus | | N20.0 | | Active | 22452409 | | | of kidney | | | | | | + + + + + + + + | Problem | Hypertensi | | I10 | | Active | 75047263 | | | on | | | | | | + + + + + + + + ALLERGIES Unknown Allergies SOCIAL HISTORY No smoking Hx information available PLAN OF CARE + +---------+ | Activity | Details | + +---------+ +---+ | | +---+ + + + | Pending Test | Cosyntropin Panel | + + + | | ,Reason: | + + + VITAL SIGNS MEDICATIONS Unknown Medications RESULTS No Results PROCEDURES No Known procedures IMMUNIZATIONS No Known Immunizations"
--- NOTE | 2017-08-30 13:17 | EKG ---
[facility] [address] [facility] [place] [address] Signed Normal sinus rhythm Left ventricular hypertrophy with repolarization abnormality Abnormal ECG No previous ECGs available Confirmed by LOLY HANLEY MD ([id number]) on 08/30/2017 1:17:30 PM Electronically Signed By: LOLY HANLEY MD 08/30/17 1317 PATIENT NAME: ROMULO OLMEDO Electrocardiogram DATE OF : 49 PHYSICIAN: LOLY HANLEY MD REPORT #: [id number] REPORT IS CONFIDENTIAL AND NOT TO BE RELEASED WITHOUT AUTHORIZATION
== END 2017-08-30 12:26 | disposition home or self-care (01) ==
LOC: ED 09:15
DX: K29.70 Gastritis, unspecified, without bleeding (principal); I11.0 Hypertensive heart disease with heart failure; I50.9 Heart failure, unspecified; K21.9 Gastro-esophageal reflux disease without esophagitis; Z85.41 Personal history of malignant neoplasm of cervix uteri; Z88.1 Allergy status to other antibiotic agents; Z88.0 Allergy status to penicillin; Z88.2 Allergy status to sulfonamides; Z88.5 Allergy status to narcotic agent; Z79.899 Other long term (current) drug therapy
CPT/HCPCS: 80053; 83690; 85025; 93005; 93010; 96374; 96375; 99284; J2405; J7030

== ENCOUNTER 2018-01-24 06:52 | Emergency (ER) | payer MEDICARE, OTHER ==
[~2018-01-24] VITALS: Ht 157.5 cm; Wt 122.6 kg
[~2018-01-24 06:52] MED LIST changes: +CELECOXIB200 MG PO
[2018-01-24] MEDS ORDERED: PROMETHAZINE HC25 M1 PO (12:10)
--- NOTE | 2018-01-24 15:10 | EKG ---
[facility] [address] [facility] [place] [address] Signed Normal sinus rhythm Voltage criteria for left ventricular hypertrophy Nonspecific ST abnormality Abnormal ECG When compared with ECG of 30-AUG-2017 09:18, No significant change was found Confirmed by LOLY HANLEY MD ([id number]) on 01/24/2018 3:09:41 PM Electronically Signed By: LOLY HANLEY MD 01/24/18 1510 PATIENT NAME: ROMULO OLMEDO CHANDU Electrocardiogram DATE OF : 49 PHYSICIAN: LOLY HANLEY MD REPORT #: [id number] REPORT IS CONFIDENTIAL AND NOT TO BE RELEASED WITHOUT AUTHORIZATION
[2018-03-01] MEDS ORDERED: VITAMIN D5000 UNIT PO (14:34)
[2018-03-01] MEDS ORDERED: IRON325 M1 PO (14:35)
== END 2018-01-24 12:36 | disposition home or self-care (01) ==
LOC: ED 06:52
DX: K29.00 Acute gastritis without bleeding (principal); D64.9 Anemia, unspecified; I10 Essential (primary) hypertension; K21.9 Gastro-esophageal reflux disease without esophagitis; Z88.1 Allergy status to other antibiotic agents; Z88.0 Allergy status to penicillin; Z88.2 Allergy status to sulfonamides; Z88.5 Allergy status to narcotic agent; Z88.8 Allergy status to other drugs, medicaments and biological substances; Z79.899 Other long term (current) drug therapy
CPT/HCPCS: 80053; 81001; 83690; 84484; 85025; 93005; 93010; 96361; 96374; 96375; 99283; J1170; J2405; J7030

== ENCOUNTER 2019-10-18 04:26 | Observation (INO) | payer MEDICARE, OTHER ==
[~2019-10-18] VITALS: Ht 157.5 cm; Wt 107.2 kg
[~2019-10-18 04:26] MED LIST changes: +CALCIUM CARB 51 EACH PO; +DULOXETINE HCL30 MG PO; +GABAPENTIN300 MG PO; +HYZAAR 50-12.51 EACH PO; +IRON325 M1 PO; +MUPIROCIN22 GM TOP; +ONDANSETRON ODT8 MG PO; +OXYBUTYNIN CHLO10 MG PO; +PROMETHAZINE HC25 M1 PO; +PROMETHAZINE12.5 M1 PO; +SLOW-MAG71.5 MG PO; +ULTRA-LIGHT RO1 EACH MISC; +VITAMIN D250000 UNIT PO; +VITAMIN D5000 UNIT PO; +VITAMIN D50000 UNI1 PO; +ZANTAC 7575 MG PO
[2019-10-18] MEDS ORDERED: LOSARTAN POTASS25 MG PO (04:49)
--- NOTE | 2019-10-18 06:56 | NUR ---
pt admitted at 0637 from ED via stretcher. Pt cooperative with transfer, alert and oriented. On O22LNC in place. SL RAC field start. Pt stated she had a lumpectomy there and had chemo and radiation. NPO. Cooperative with admit questionaire and assessment, Oriented to room and hosp equipment.
--- NOTE | 2019-10-18 07:24 | NUR ---
REPORT RECIEVED FROM TANIA AGUAYO. PT REPORTS 9/10 PAIN AND IS PLAYING ON PHONE, TALKING ABOUT HER PUPPY. SEE MAR FOR MEDICATION GIVEN. NO ADDITIONAL REQUESTS OR COMPLAINTS AT THIS TIME. CALL LIGHT WITHIN REACH. BED RAILS UP.
--- NOTE | 2019-10-18 07:50 | EKG ---
[facility] [address] [facility] [place] [address] Signed Normal sinus rhythm Minimal voltage criteria for LVH, may be normal variant Nonspecific ST abnormality Abnormal ECG When compared with ECG of 12-JUN-2018 07:48, Nonspecific T wave abnormality no longer evident in Inferior leads QT has shortened Confirmed by CRISTY BERMAN MD ([id number]) on 10/18/2019 7:50:15 AM Electronically Signed By: CRISTY BERMAN MD 10/18/19 0750 PATIENT NAME: ROMULO OLMEDO Electrocardiogram DATE OF : 49 PHYSICIAN: CRISTY BERMAN MD REPORT #: [id number] REPORT IS CONFIDENTIAL AND NOT TO BE RELEASED WITHOUT AUTHORIZATION
--- NOTE | 2019-10-18 08:01 | NUR ---
MORNING ASSESSMENT AND MEDICATION DUE. PT RESTING IN BED AND REPORTS PAIN IMPROVED TO 4/10 WITH PAIN MEDICATION. PT STATES "MAYBE I'LL TAKE A NAP NOW." PIV TO RAC DC'D PT HAS RIGHT ARM RESTRICTION AND PIV IS LEAKING, GAUZE AND COBAN APPLIED. NEW PIV STARTED IN LEFT FORARM PER PROTOCOL. BRISK BLOOD RETURN NOTED. LABS DRAWN AND SENT TO LAB PER ORDERS. IV FLUIDS INFUSING THROUGH LEFT FORARM PIV. ROOM AIR TRIAL DONE. PT TOLERATING ROOM AIR WITH O2 ABOVE 92%. PT REMAINS ON ROOM AIR AT THIS TIME. ASSESSMENT DONE. LUNG SOUNDS CLEAR TO DEMINISHED. STOMACH GURGERLING HEARD FROM BACK WHEN LISTENING TO LUNG SOUNDS. OTHERWISE HYPOACTIVE BOWEL TONES NOTED. PT IN NORMAL SINUS RHYTHEM AT THIS TIME. CASE MANAGEMENT TO BEDSIDE. NO ADDITIONAL REQUESTS OR COMPLAINTS. CALL LIGHT WITHIN REACH. BED RAILS UP.
--- NOTE | 2019-10-18 08:10 | NUR ---
PATIENT IN THE BED RESTING. WARM WASHCLOTH OFFERED AND GIVEN. SHOWER SET UP. PATIENT UP AND TRALKING ON THE PHONE. CALL LIGHT IN REACH. NO FURTHER NEEDS AT THIS TIME.
--- NOTE | 2019-10-18 08:10 | NUR ---
Initial eval completed. Pt lives in [place] in an apartment. Spouse has parkinsons and lives n the same building in a seperate apartment. Pt has 3 step kids and 3 children of her own. States both son's are due to murder and suicide. She is attending Grief group. One daughter has drug issues. Other daughter is her state paid caregiver and granddaughter assists her. She has a walker,but does not use as her apartment is to small. Has a cane. States she has had GI bleed x 3 over the last 10 years.
--- NOTE | 2019-10-18 09:49 | NUR ---
THIS RN TO ROOM TO CHECK ON PT. PT TALKING TO FRIEND ON PHONE. LYING ON LEFT SIDE. PT REPORTS 4/10 PAIN THAT IS "OK" AT THIS TIME. PT DENIES NEED FOR ADDITONAL PAIN MEDICATION. BED RAILS UP, CALL LIGHT WITHIN REACH.
--- NOTE | 2019-10-18 10:15 | NUR ---
ASSUMED CARE OF PT AT THIS TIME, PT IS RESTING ON BED, DENIES ANY NEEDS, CALL LIGHT IN EASY REACH.
--- NOTE | 2019-10-18 11:14 | NUR ---
IV TO SL, PT UP TO SHOWER WITH ASSIST OF BACK TENDER CYLINDER.
--- NOTE | 2019-10-18 11:27 | NUR ---
COMPLETED SHOWER, STATES SHE FEELS BETTER, IVF INFUSING, HRR-78, STATES SHE IS GOING TO TAKE A NAP, ASKED PHONE CALLS BE HELD AT THIS TIME. STATES HER KIDS ARE DRIVING HER CRAZY. CALL LIGHT IN EASY REACH.
[2019-10-18] MEDS ORDERED: OXYBUTYNIN CHLO15 MG PO (11:41)
[2019-10-18] MEDS ORDERED: CYMBALTA30 MG PO (12:47)
[2019-10-18] MEDS ORDERED: NEURONTIN300 MG PO (12:48)
[2019-10-18] MEDS ORDERED: MAGNESIUM OXID500 MG PO (12:53)
[2019-10-18] MEDS ORDERED: CALCIUM 500 +1 EAC2 PO (12:54)
[2019-10-18] MEDS ORDERED: VITAMIN C500 M1 PO (12:55)
[2019-10-18] MEDS ORDERED: NITROSTAT0.4 MG SL (12:55)
--- NOTE | 2019-10-18 12:56 | NUR ---
MED REC COMPLETE
--- NOTE | 2019-10-18 18:54 | NUR ---
PT RESTING ON BED, REQUEST TYLENOL FOR HEADACHE, STATES SHE USUALLY DRINKS 5 CUPS COFFEE DAY, REMAINS NPO, H/H STABLE. IVF PATENT.
--- NOTE | 2019-10-18 19:14 | NUR ---
RECEIVED REPORT FROM TANIA JAVIER. pt RESTING IN BED. NO REQUESTS AT THIS TIME. CALL LIGHT WITHIN REACH. WHITEBOARD UPDATED.
--- NOTE | 2019-10-18 20:36 | NUR ---
ASSESSMENT DONE. pt REPORTED HEADAC HE HAS IMPROVED RATED 4/10. MEDICATION GIVEN (SEE MAR). VITALS AND I&O RECORDED. LIGHTS OFF PER REQUEST. CALL LIGHT WITHIN REACH.
--- NOTE | 2019-10-18 22:14 | NUR ---
TANIA SAUNDERS REPORTED pt HAD CALLED FOR A HEADACHE. THIS RN TO ROOM. pt RESTING WITH EYES CLOSED, RESPIRATIONS REGULAR. DID NOT WAKE TO VOICE. CALL LIGHT WITHIN REACH.
--- NOTE | 2019-10-19 00:24 | NUR ---
PER CERTIFIED MEDICINE AIDE, pt UP TO VOID AND BACK TO BED. IV PUMP BEEPING. NEW BAG OF IVF HUNG (SEE MAR). pt RESTING AT THIS TIME. CALL LIGHT WITHIN REACH.
--- NOTE | 2019-10-19 02:16 | NUR ---
pt UP TO VOID AND BACK TO BED. PER CCU, HR UP TO 140's WITH AMBULATION, HR 80'S AFTER pt UP AND STABLE ON FEET. pt REPORTED 9/10 PAIN WITH HEADACHE AND NAUSEA, PRN MEDICATIONS GIVEN (SEE MAR). pt RESTING IN BED. NO FURTHER REQUESTS AT THIS TIME. CALL LIGHT WITHIN REACH.
--- NOTE | 2019-10-19 04:26 | NUR ---
ROUNDED ON pt. RESTING WITH EYES CLOSED, RESPIRATIONS REGULAR AND UNLABORED. CALL LIGHT WITHIN REACH.
--- NOTE | 2019-10-19 04:56 | NUR ---
pt RESTED ON AND OFF DURING SHIFT. pt HAD EPISODE OF HR >140 X2. FIRST EPISODE WHEN AMBULATING. pt REPORTED A CONSISTENT 9/10 HEADACHE, PRN PAIN MEDS X2. IVF INFUSING. 1PA. NO EMESIS. NAUSEA MEDS X1. USES CALL LIGHT APPROPRIATELY.
--- NOTE | 2019-10-19 07:05 | NUR ---
PT RESTING IN BED EYES CLOSED AND RESPIRATIONS EVEN AND UNLABORED. PT APPEARS TO BE SLEEPING COMFORTABLY. CALL LIGHT IN REACH. BEDSIDE REPORT RECEIVED FROM TANIA GANDHI.
--- NOTE | 2019-10-19 07:34 | NUR ---
PT REPORTS HAVING SMALL AMOUNT OF EMISIS, CLEAR YELLOWISH GREEN EMISIS NOTED TO EMISIS BAG. PT REPORTS GENERALIZED HEADACHE STATES "I USUALLY HAVE ATLEAST A POT OR TWO OF COFFEE EVERY DAY AND I HAVENT HAD ANY SO I THINK THAT'S WHAT'S CAUSING ME TO HAVE SUCH A BAD HEADACHE". PRN IV ZOFRAN ADMINISTERED. PT DENIES NAUSEA AND STATES SHE FEELS SHE COULD KEEP DOWN TYLENOL SO THIS WAS ADMINISTERED. WARM PACK PROVIDED FOR HEAD AND PT NOW RESTING SUPPINE IN BED EYES CLOSED WITH WARM PACK ON HEAD. LIGHTS OFF FOR COMFORT. NO FURTHER NEEDS OR CONCERNS VOICED.
--- NOTE | 2019-10-19 08:12 | NUR ---
patient resting in the bed. warm pack on head. room picked up. warm washcloth offered. call light in reach. no further needs at this time.
--- NOTE | 2019-10-19 08:20 | NUR ---
AM MED ADMINISTERED. CALL LIGHT AND H2O IN REACH. PT DENIES NEEDS OR CONCERNS. PT DENIES NAUSEA OR SOB AT THIS TIME.
--- NOTE | 2019-10-19 09:56 | NUR ---
IN TO ANSWERE CALL LIGHT. PT ASSISTED UP TO RESTROOM WITH SBA. PT AGREES TO USE CALL LIGHT WHEN FINISHED. PT DENIES NAUSEA PAIN OR SOB AT THIS TIME.
--- NOTE | 2019-10-19 11:14 | NUR ---
Patient on phone. Will return later today or Tuesday.
--- NOTE | 2019-10-19 13:02 | NUR ---
IN TO ANSWER CALL LIGHT. PT HAD ANOTHER SMALL AMOUNT OF TRISTAN/LIGHT BROWN EMISIS. PT STATES "THER WENT SOME OF THE COFFEE I DRANK". PRN IV REGLAN ADMINISTERED. CALL LIGHT AND NEW EMISIS BAG IN REACH. PT REPORTS HEADACH WILL ADMINISTER TYLENOL PER PT REQUEST. NO FURTHER NEEDS OR CONCERNS VOICED.
--- NOTE | 2019-10-19 14:30 | NUR ---
PT RESTING IN SEMIFOWLERS POSITION IN BED, PT ASSESSMENT COMPLETED. PT DENIES NEEDS OR CONCERNS. CALL LIGHT AND H2O IN REACH.
--- NOTE | 2019-10-19 16:31 | NUR ---
PT RESTING IN BED WATCHING TV, WARM BLANKET PROVIDED PER PT REQUEST. CALL LIGHT AND H2O IN REACH. NO FURTHER NEEDS OR CONCERNS VOICED.
--- NOTE | 2019-10-19 17:41 | NUR ---
IN TO ANSWER CALL LIGHT. PER PT REQUEST, PT WAS ASSISTED UP TO RESTROOM WITH ONLY SBA. PT VOIDS CLEAR YELLOW URINE AND ASSISTED BACK TO BED. CALL LIGHT AND H2O IN REACH. NO FURTHER NEEDS OR CONCERNS VOICED.
--- NOTE | 2019-10-19 18:30 | NUR ---
PT ASSSITED UP TO RESTROOM AGAIN AND BACK TO BED. PT WAS INCONTINANT OF URINE AND VOIDS 375MLS OF CLEAR YELLOW URINE. PT REQUESTS TO HAVE IV FLUIDS STOPPED. "I'M PEEING CONSTANTLY CAN I GET THIS THING OUT OF MY ARM NOW SO I DOGMAN/WOMAN STOP PEEING SO MUCH?". PT TOLERATING PO FLUIDS AND DENIES NAUSEA. PT DENIES HEADACHE. DR BERMAN NOTIFIED OF PT'S S/SX'S AND OF PT'S REQUEST.
--- NOTE | 2019-10-19 19:15 | NUR ---
PSHIFT REPORT RECIEVED FROM LORE MARIN. PT VISITING WITH FAMILY. NO ONEEDS AT THIS TIME. CALL LIGHT IN REACH.
--- NOTE | 2019-10-19 21:23 | NUR ---
PT ASSESSMENT COMPLETED. ABD PAIN WITH PALPATION. PT EMOTIONAL ABOUT RECENT FAMILY EVENTS. IV CDI, WNL, FLUSHED WELL. NO OTHER NEEDS, CALL LIGHT IN REACH.
--- NOTE | 2019-10-19 23:36 | NUR ---
PT RESTING IN BED, EYES CLOSED. RR 14, EVEN, UNLABORED. CALL LIGHT IN REACH.
--- NOTE | 2019-10-20 01:40 | NUR ---
PT RESTING IN BED, EYES CLOSED. RR 12, EVEN, UNLABORED. CALL LIGHT IN REACH.
--- NOTE | 2019-10-20 03:52 | NUR ---
PT RESTING IN BED, EYES CLOSED. RR 12, EVEN, UNLABORED. CALL LIGHT IN REACH.
--- NOTE | 2019-10-20 05:04 | NUR ---
PT SLEPT VERY WELL THIS SHIFT. NO COMPLAINTS OF PAIN. PT TOLERATES IV AND SOFT DIET WELL. IV CDI, WNL, FLUSHED WELL. PT IS EMOTIONAL ABOUT RECENT FAMILY LOSSES. VSS, UO SUFFICIENT. 1P SBA.
--- NOTE | 2019-10-20 06:26 | NUR ---
PT UP TO BR AND BACK TO BED WITH December. SCHEDULED MED PROOVIDED. ASSESSMENT COMPLETED. PT DENIES PAIN AND NAUSEA. VS AND I&O COMPLETED. NO OTHER NEEDS, CALL LIGHT IN REACH.
--- NOTE | 2019-10-20 08:12 | NUR ---
PATIENT RESTING IN BED. IV WRAPPED. PATIENT GOES TO THE BATHROOM TO TAKE A SHOWER. ONE PERSON ASSISTING. LINENS CHANGED. PATIENT BACKS TO CHAIR. SETS UP TABLE FOR BREAKFAST. WARM BLANKET PROVIDED. ICE WATER GIVEN. CALL LIGHT WITHIN REACH. NO OTHER NEEDS AT THIS TIME
--- NOTE | 2019-10-20 08:13 | NUR ---
PT SITTING UP IN THE CHAIR CURRENTLY EATTING BKF AT THIS TIME. AND SHE IS TALKING ON THE PHONE.
--- NOTE | 2019-10-20 09:00 | NUR ---
DR SONI INTO SEE PT THIS AM, PT WILL DC'D THIS AM.
[2019-10-20] MEDS ORDERED: NEXIUM40 MG PO (09:06)
--- NOTE | 2019-10-20 09:08 | NUR ---
PATIENT SITTING UP IN CHAIR. VITAL SIGNS AND I&O DONE. CALL LIGHT WITHIN REACH. NO OTHER NEEDS AT THIS TIME
--- NOTE | 2019-10-20 10:25 | NUR ---
pt discharge to home all questions answered at this time. Pt granddaughter will be here at 10:30 this am to give her a ride home. all personal belongins sent with pt at this time.
== END 2019-10-20 10:35 | disposition home or self-care (01) ==
LOC: ED 04:26 → MS 04:28
PROVIDERS: ADMIT Internal Medicine
DX: K92.0 Hematemesis (principal); D50.0 Iron deficiency anemia secondary to blood loss (chronic); K44.9 Diaphragmatic hernia without obstruction or gangrene; G89.29 Other chronic pain; K21.9 Gastro-esophageal reflux disease without esophagitis; M19.90 Unspecified osteoarthritis, unspecified site; Z87.19 Personal history of other diseases of the digestive system; Z88.0 Allergy status to penicillin; Z88.1 Allergy status to other antibiotic agents; Z88.2 Allergy status to sulfonamides; Z88.5 Allergy status to narcotic agent; Z79.899 Other long term (current) drug therapy
CPT/HCPCS: 36415; 71045; 80048; 80053; 83690; 83735; 84484; 85025; 85610; 85730; 86850; 86900; 86901; 86920; 93005; 93010; 96374; 96375; 96376; 99285-25; C9113; G0378; J1170; J2405; J2765; J3480; J7121

== ENCOUNTER 2025-01-02 15:49 | Emergency (ER) | payer MEDICARE, OTHER ==
[~2025-01-02] VITALS: Ht 157.5 cm; Wt 124.0 kg
[~2025-01-02 15:49] MED LIST changes: +CALCIUM 500 +1 EAC2 PO; +LOSARTAN POTASS25 MG PO; +MAGNESIUM OXID500 MG PO; +OXYBUTYNIN CHLO15 MG PO; +VITAMIN C500 M1 PO
[2025-01-02] MEDS ORDERED: DIPHTH,PERTUSS(ACELL),TET VAC 0.5 ML SYRINGE IM ONE (16:00)
[2025-01-02] MEDS ORDERED: SUCRALFATE1 GM/10 ML PO (16:18)
[2025-01-02] MEDS ORDERED: HYDROCHLOROTH12.5 MG PO (16:19)
[2025-01-02] MEDS ORDERED: DOXYCYCLINE HY100 MG PO (18:27)
[2025-01-02 18:34] VITALS: BP 135/77
== END 2025-01-02 19:03 | disposition home or self-care (01) ==
LOC: ED 15:49
DX: S81.011A Laceration without foreign body, right knee, initial encounter (principal); W07.XXXA Fall from chair, initial encounter
CPT/HCPCS: 12002; 73560; 90471; 90715; 99283-25

== ENCOUNTER 2025-02-14 07:15 | Day surgery (SDC) | payer MEDICARE, OTHER ==
[2025-02-11 16:31] VITALS: BP 168/69
[~2025-02-14] VITALS: Ht 157.5 cm; Wt 119.1 kg
[~2025-02-14 07:15] MED LIST changes: +DOXYCYCLINE HY100 MG PO; +HYDROCHLOROTH12.5 MG PO; +IBLOOD GLUCOSE TEST STRIP 1 EA TEST VI PRN; +LACTATED RINGER'S 1,000 ML IV SCH; +LIDOCAINE HCL 1% 5 ML SDV INJ ONE; +MAGNESIUM500 MG PO; +SUCRALFATE1 GM/10 ML PO
--- NOTE | 2025-02-14 07:27 | NUR ---
PT NOT AVAILABLE FOR VISIT. PROVIDED PRAYER.
[2025-02-14 07:33] VITALS: BP 183/75
[2025-02-14] MEDS ORDERED: propofoL 200 MG/20 ML VIAL ONE (08:23)
[2025-02-14] MEDS ORDERED: LIDOCAINE HCL 2% 5 ML SDV ONE (08:23)
--- NOTE | 2025-02-14 09:22 | NUR ---
02/14/25 0922 Cele Silva 0912-PATIENT ARRIVED TO PACU ON 6L NC LAYING LEFT LATERAL REACTIVE TO VERBAL STIMULI OPENING EYES. ABDOMEN SOFT. IVF INFUSING. PATIENTS MOUTH WIPED CLEAR SECRETIONS. 15-BP'S ELEVATED 170'S. PATIENT REPORTS "DR PUT ON SOME DIFFERENT MEDICINE SOMTIMES I GET HEART PALPITATIONS " DISCUSSED CALLING DR AND WILL LET CAREGIVER KNOW TO SCHEDULE APPT. DENIES PAIN OR NAUSEA. 09- AT BEDSIDE TALKING TO PATIENT. RA 94% RR EVEN.
[2025-02-14 10:02] VITALS: BP 170/90
--- NOTE | 2025-02-19 09:34 | PATH ---
[facility] [address], [place] [address] Signed SPECIMEN(S): A PYLORIC BIOPSY SPECIMEN(S): B ANTRUM BIOPSY SPECIMEN(S): C BODY BIOPSY SPECIMEN(S): D GE JUNCTION BIOPSY SPECIMEN(S): E GASTRIC BODY POLYP SPECIMEN SOURCE: A. PYLORIC BIOPSY B. ANTRUM BIOPSY C. BODY BIOPSY D. GE JUNCTION BIOPSY E. GASTRIC BODY POLYP CLINICAL HISTORY: Pre-: Left upper quadrant pain and dysphagia. Post: Gastritis, gastric polyps. A-D) biopsy, E) polyp FINAL PATHOLOGIC DIAGNOSIS: A. Pyloric biopsy: - Mild reactive gastropathy. - Negative for Helicobacter pylori by HE. - Negative for intestinal metaplasia, dysplasia, or malignancy. B. Antrum, biopsy: - Oxyntic gastric mucosa with mild reactive change and focally dilated fundic glands, suggesting early fundic gland polyp. - Negative for Helicobacter pylori by HE. - Negative for intestinal metaplasia, dysplasia, or malignancy. C. Stomach body, biopsies: - Oxyntic gastric mucosa with mild reactive change. - Negative for Helicobacter pylori by HE. - Negative for intestinal metaplasia, dysplasia, or malignancy. D. Gastroesophageal junction, biopsies: - Gastric cardia and squamous mucosa with mild reflux-associated change. - Negative for intestinal metaplasia, dysplasia, or malignancy. E. Gastric body polyp, biopsies: - Fundic gland polyp. DWS:nicole MICROSCOPIC EXAMINATION: Histologic sections of all submitted blocks are examined by light microscopy. These findings, together with the gross examination, support the pathologic PATIENT NAME: ROMULO BERNAL PATHOLOGY DATE OF : 49 REPORT #: [id number] PHYSICIAN: ROLANDA WALTER PCP: TOMMIE MONTOYA MD REPORT IS CONFIDENTIAL AND NOT TO BE RELEASED WITHOUT AUTHORIZATION [facility] [address], [place] [address] Signed diagnosis. GROSS DESCRIPTION: A. The specimen, labeled and designated "Eufemia Bernal, pyloric biopsy," is received in formalin and consists of one colindres soft tissue fragment, 0.4 cm. Entirely submitted in (A1). B. The specimen, labeled and designated "Dolores, M, antrum biopsy," is received in formalin and consists of one colindres soft tissue fragment, 0.3 cm. Entirely submitted in (B1). C. The specimen, labeled and designated "Dolores M, body biopsy," is received in formalin and consists of one colindres soft tissue fragment, 0.5 cm. Entirely submitted in (C1). D. The specimen, labeled and designated "Dolores, Eufemia, GE junction biopsy," is received in formalin and consists of four colindres soft tissue fragments, ranging from 0.4-0.5 cm. Entirely submitted in (D1). E. The specimen, labeled and designated "Dolores, M, gastric body polyp," is received in formalin and consists of one colindres soft tissue fragment, 1.7 x 1.5 x 1.0 cm. No margin is grossly detected. The specimen is sectioned. Entirely submitted in (E1). AB (under the direct supervision of a pathologist) The Gross Description was prepared using a voice recognition system. The report was reviewed for accuracy; however, sound-alike word errors, addition and/or deletions may occur. If there is any question about this report, please contact Client Services. PERFORMING LABORATORY: Technical component was performed by [facility], [address] [place] [address] (CLIA# [id number]). Professional interpretation was performed by [facility], [address] [place] [id number] (CLIA#: [id number]). Diagnostician: Tristan Lew MD Pathologist Electronically Signed 02/19/2025 Copies: ~ PATIENT NAME: ROMULO BERNAL PATHOLOGY DATE OF : 49 REPORT #: [id number] PHYSICIAN: ROLANDA PATHOLOGY PCP: TOMMIE MONTOYA MD REPORT IS CONFIDENTIAL AND NOT TO BE RELEASED WITHOUT AUTHORIZATION
== END 2025-02-14 10:15 | disposition home or self-care (01) ==
LOC: DS 07:15
PROVIDERS: ATTEND Surgery
PROC: 0DB48ZX Excision of Esophagogastric Junction, Via Natural or Artificial Opening Endoscopic, Diagnostic (ICD-10-PCS; 2025-02-14)
PROC: 0DB68ZX Excision of Stomach, Via Natural or Artificial Opening Endoscopic, Diagnostic (ICD-10-PCS; principal; 2025-02-14 08:40)
DX: K44.9 Diaphragmatic hernia without obstruction or gangrene (principal); K31.7 Polyp of stomach and duodenum; K29.70 Gastritis, unspecified, without bleeding; K31.9 Disease of stomach and duodenum, unspecified; I11.0 Hypertensive heart disease with heart failure; I50.30 Unspecified diastolic (congestive) heart failure; K21.9 Gastro-esophageal reflux disease without esophagitis; E78.00 Pure hypercholesterolemia, unspecified; Z88.1 Allergy status to other antibiotic agents; Z88.5 Allergy status to narcotic agent; Z88.0 Allergy status to penicillin; Z88.2 Allergy status to sulfonamides; Z88.8 Allergy status to other drugs, medicaments and biological substances
CPT/HCPCS: 00813; 36415; 87077; J2003; J2704